=== PATIENT | male | born 1970 | race Caucasian/White ===

== ENCOUNTER → 2016-11-16 | Outpatient (CLI) | payer BC ==
[~2016-11-16] MED LIST: IBUP-103 PO
--- NOTE | 2016-11-16 13:48 | DIAGNOSTIC IMAGING REPORT ---
RIGHT KNEE MRI HISTORY: RIGHT KNEE PAIN Right COMPARISON STUDY: Bilateral knees 11/14/2016. TECHNIQUE: Multiplanar multisequence MRI of the right knee was performed according to standard department protocol without the use of contrast. FINDINGS: Menisci: The medial and lateral menisci are intact. Ligaments: The anterior and posterior cruciate ligaments are intact. The medial and lateral collateral ligaments are normal in appearance. Extensor mechanism: The quadriceps tendon and patellar ligament are intact. Articular cartilage and bone: No fracture or dislocation within the right knee. Small cystic focus within the mid proximal tibia which measures 5 mm. This is of doubtful clinical significance. Mild cartilage thinning within the medial femoral condyle. Small focal fissure within the median ridge of the patella. Best on coronal image 15 there is a small 5 mm bony excrescence extending from the medial aspect of the medial femoral condyle. This abuts and slightly displaces the undersurface of the MCL. There is trace soft tissue edema surrounding this area. Joint effusion: None. Soft tissues: Small popliteal cyst. IMPRESSION: 1. There is a 5 mm bony excrescence extending from the medial aspect of the medial femoral condyle. This abuts and slightly displaces the undersurface of the MCL. There is trace edema surrounding this excrescence possibly due to chronic irritation. The fibers of the MCL are intact. 2. No evidence for meniscus tear. 3. 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 4. Small popliteal cyst. Electronically signed by: Vic Jiménez M.D. 11/16/2016 1:47 PM Dictated Date/Time: 11/16/2016 1:36 PM
== END | disposition home or self-care (01) ==
LOC: C.MRIBC 12:30
PROVIDERS: ATTEND Orthopaedic Surgery
DX: M25.562 Pain in left knee (principal); M85.88 Other specified disorders of bone density and structure, other site; M71.22 Synovial cyst of popliteal space [Baker], left knee

== ENCOUNTER 2017-08-28 09:43 | Emergency (ER) | payer BC ==
[~2017-08-28] VITALS: Ht 172.7 cm; Wt 110.7 kg
[2017-08-28 09:45] VITALS: TEMP 36.4; Ht 172.7 cm; Wt 110.7 kg
[2017-08-28 10:22] LABS: BASO % 0.3 %; BASO ABS # 0.02 K/uL (0-0.2); EOS % 1.8 %; EOS ABS # 0.12 K/uL (0-0.5); HEMATOCRIT 47.1 % (42-52); HEMOGLOBIN 17.4 g/dL (14.0-18.0); IG# 0.02 K/uL (0.00-0.02); LYMPH % 27.1 %; LYMPH ABS # 1.83 K/uL (1.2-3.4); MEAN CORPUSCULAR HEMOGLOBIN 31.4 pg (25-34); MEAN CORPUSCULAR HGB CONC 36.9 g/dl (32-36); MEAN PLATELET VOLUME 11.9 fL (7.4-10.4); MONO % 7.7 %; MONO ABS # 0.52 K/uL (0.11-0.59); NEUT % 62.8 %; NEUT ABS # 4.25 K/uL (1.4-6.5); PLATELET COUNT 187 K/uL (130-400); RED CELL DISTRIBUTION WIDTH CV 13.3 % (11.5-14.5); RED CELL DISTRIBUTION WIDTH SD 41.3 fL (36.4-46.3); WHITE BLOOD COUNT 6.76 K/uL (4.8-10.8)
[2017-08-28 10:32] LABS: PTT PATIENT 31.3 SECONDS (21.0-31.0)
[2017-08-28 10:38] LABS: CALCIUM 9.1 mg/dl (8.5-10.1); CREATININE 1.35 mg/dl (0.60-1.40); POTASSIUM 3.4 mmol/L (3.5-5.1)
[2017-08-28 11:28] LABS: ALBUMIN 3.9 gm/dl (3.4-5.0); CKMB 0.9 ng/ml (0.5-3.6); TOTAL PROTEIN 8.2 gm/dl (6.4-8.2)
[2017-08-28 12:13] VITALS: BP 140/99; PULSE 80; O2SAT 98
--- NOTE | 2017-08-28 12:23 | HISTORY & PHYSICAL EXAMINATION ---
DATE OF ADMISSION: 08/28/2017 CHIEF COMPLAINT: Right lower extremity difficulty, paresthesias and pain. HISTORY OF PRESENT ILLNESS: Romeo is delightful. He is 46. He presented to the Emergency Room with a few-hour history of lower extremity difficulty, pain to his right calf, worsening by putting weight on it. Denies any associated trauma. Denies any associated weakness. 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 He had symptoms very similar. Five years ago in 2012, he had compartment syndrome, seen at [facility] urgently ____ [facility]. He had a 4-compartment fasciotomy performed to his left lower extremity. PAST MEDICAL HISTORY: Basically negative. PAST SURGICAL HISTORY: History of cholecystectomy ____. FAMILY HISTORY: Diabetes, heart disease, cancer, hypertension. SOCIAL HISTORY: Nonsmoker, no alcohol use. He is , employed. CURRENT MEDICATIONS: Advil. ALLERGIES: Negative. PHYSICAL EXAMINATION: VITAL SIGNS: He is afebrile. Adequate pulse at 82 beats per minute. GENERAL: He is alert, oriented. A normal-appearing male. HEENT: Normal. NECK: Supple. CHEST: Clear. CARDIAC: Regular rate. ABDOMEN: Soft, tender. MUSCULOSKELETAL: He has a sort of a cellulitis or rash on his right lower extremity dorsal aspect. It has been ____ 3-4 months. He has some swelling in his calf ____ towards his ankle. He has adequate pulses. He has adequate motor ability. No loss of sensation. IMPRESSION: Potential compartment syndrome or compartment syndrome evolution. PLAN: Includes a consultation with orthopedic at [facility]. They were kind enough to accept our patient. He had a surgery up there 5 years ago. The patient is really unsure where he would like to go, but I have tried to give him the best option. I feel that a transfer at least for evaluation and treatment in the Emergency Room setting would be appropriate. They have agreed to that.
--- NOTE | 2017-08-28 18:06 | EMERGENCY ROOM VISIT NOTE ---
History Report prepared by Angela: Tarun Chou Under the Supervision of: Dr. Ezra Gamble M.D. First contact with patient: 09:54 Chief Complaint: LEG PAIN,LEG INJURY Stated Complaint: PAIN IN LOWER RIGHT LEG History of Present Illness The patient is a 46 year old male who presents to the Emergency Room after referral from his PCP with complaints of worsening pain in the right lower extremity that her first noticed this morning. The pain is worse in the back of the right calf. The pain is worsened by walking/putting weight on the leg, but denies any associated weakness. He has a history of spontaneous compartment syndrome in his left lower extremity, and he notes that these symptoms feel very similar. Monday night he did have a fever. Source of History: patient Onset: This morning Position: leg (right) Timing: worsening Modifying Factors (Worsening): other (Applying weight to the leg) Associated Symptoms: + fevers Review of Systems See HPI for pertinent positives & negatives. A total of 10 systems reviewed and were otherwise negative. Past Medical & Surgical Surgical Problems: (1) Hx of cholecystectomy Hx of Spontaneous Compartment syndrome in the LLE. Family History Diabetes mellitus FH: heart disease FH: lung disease FHx: cancer Hypertension Social History Smoking Status: Never Smoker Alcohol Use: none Drug Use: none Marital Status: Occupation Status: employed Current/Historical Medications No Active Prescriptions or Reported Meds Allergies Coded Allergies: Azithromycin (Unverified Allergy, Unknown, flu like symptoms, 08/28/17) Physical Exam Vital Signs Date Time Temp Pulse Resp B/P (MAP) Pulse Ox O2 Delivery O2 Flow Rate FiO2 08/28/17 12:13 80 20 140/99 98 08/28/17 11:27 80 20 140/105 98 Room Air 08/28/17 09:45 36.4 82 18 161/117 97 Room Air Physical Exam General: Non-ill appearing middle-aged male in no acute distress. HEENT: Normal cephalic atraumatic. Pupils are equal round and reactive to light. Extraocular movements are intact. Oropharynx is pink with moist mucous membranes. No swelling of the mouth lips or tongue. Neck: Supple with a midline trachea. No meningeal signs or stiffness, no JVD or bruits. No Stridor. Chest: Clear to auscultation bilaterally. No wheezes or rhonchi. No increased work of breathing. Heart: regular rate and rhythm. Abdomen: Soft nontender, nondistended without rebound guarding or rigidity. Extremities: No cyanosis or clubbing. There is some right anterior this scabs present. The right calf is proximally non-tender. Distally there is some swelling around the ankle which is tender. The foot appears the same color and temperature as the left side. There is good capillary refill. It is difficult to palpate the pulses bilaterally. His skin has slight pink discoloration. Spine/Back. Non tender to palpation. No CVA tenderness Skin: Good turgor without rashes. Neurologic exam: Cranial nerves two through 12 are intact. Motor and sensation are intact and symmetrical throughout. Medical Decision & Procedures Laboratory Results 08/28/17 10:10 Red Blood Count 5.54, Mean Corpuscular Volume 85.0, Mean Corpuscular Hemoglobin 31.4, Mean Corpuscular Hemoglobin Concent 36.9, Mean Platelet Volume 11.9, Neutrophils (%) (Auto) 62.8, Lymphocytes (%) (Auto) 27.1, Monocytes (%) (Auto) 7.7, Eosinophils (%) (Auto) 1.8, Basophils (%) (Auto) 0.3, Neutrophils # (Auto) 4.25, Lymphocytes # (Auto) 1.83, Monocytes # (Auto) 0.52, Eosinophils # (Auto) 0.12, Basophils # (Auto) 0.02 08/28/17 10:10 Test 08/28/17 10:10 White Blood Count 6.76 K/uL (4.8-10.8) Red Blood Count 5.54 M/uL (4.7-6.1) Hemoglobin 17.4 g/dL (14.0-18.0) Hematocrit 47.1 % (42-52) Mean Corpuscular Volume 85.0 fL (80-100) Mean Corpuscular Hemoglobin 31.4 pg (25-34) Mean Corpuscular Hemoglobin Concent 36.9 g/dl (32-36) Platelet Count 187 K/uL (130-400) Mean Platelet Volume 11.9 fL (7.4-10.4) Neutrophils (%) (Auto) 62.8 % Lymphocytes (%) (Auto) 27.1 % Monocytes (%) (Auto) 7.7 % Eosinophils (%) (Auto) 1.8 % Basophils (%) (Auto) 0.3 % Neutrophils # (Auto) 4.25 K/uL (1.4-6.5) Lymphocytes # (Auto) 1.83 K/uL (1.2-3.4) Monocytes # (Auto) 0.52 K/uL (0.11-0.59) Eosinophils # (Auto) 0.12 K/uL (0-0.5) Basophils # (Auto) 0.02 K/uL (0-0.2) RDW Standard Deviation 41.3 fL (36.4-46.3) RDW Coefficient of Variation 13.3 % (11.5-14.5) Immature Granulocyte % (Auto) 0.3 % Immature Granulocyte # (Auto) 0.02 K/uL (0.00-0.02) Prothrombin Time 10.0 SECONDS (9.0-12.0) Prothromb Time International Ratio 1.0 (0.9-1.1) Activated Partial Thromboplast Time 31.3 SECONDS (21.0-31.0) Partial Thromboplastin Ratio 1.2 Anion Gap 7.0 mmol/L (3-11) Est Creatinine Clear Calc Drug Dose 80.7 ml/min Estimated GFR () 71.4 Estimated GFR (Non- 61.6 BUN/Creatinine Ratio 9.6 (10-20) Calcium Level 9.1 mg/dl (8.5-10.1) Total Bilirubin 1.0 mg/dl (0.2-1) Direct Bilirubin 0.3 mg/dl (0-0.2) Aspartate Amino Transf (AST/SGOT) 17 U/L (15-37) Alanine Aminotransferase (ALT/SGPT) 52 U/L (12-78) Alkaline Phosphatase 44 U/L (45-117) Total Creatine Kinase 104 U/L (39-308) Creatine Kinase MB 0.9 ng/ml (0.5-3.6) Creatine Kinase MB Ratio 0.9 (0-3.0) Total Protein 8.2 gm/dl (6.4-8.2) Albumin 3.9 gm/dl (3.4-5.0) Lipase 178 U/L (73-393) Laboratory studies as stated above per my review. ED Course 0954: Past medical records reviewed. The patient was evaluated in room B4B, and a complete history and physical examination were performed. 1024: I discussed the case with Dr. Alon Cochran. They will have someone come to see the patient in the department. 1034: I updated the patient at this time. His is here now. I informed them that the Orthopedic will be in. 1112: I discussed the case with Dr. Thomas - [facility]or has evaluated the patient. He is considering transfer. 1138: I discussed with Dr. Thomas again. He wants to transfer the patient via private vehicle to [facility] as that is where the past surgery was done. The patient is in agreement and will be transferred. Medical Decision Differential diagnosis includes; compartment syndrome, infection, DVT, musculoskeletal disorder. This patient comes in as described above. He was placed in room before he has pain in his right leg, he has had compartment syndrome on the left in the past and said it felt similar but was worse.. He has no neurologic deficits. He does have some scabs in his villagomez is possible this could be more like cellulitis. IV access was established and blood work was obtained I called or so immediately after same as my concern he that he could have compartment syndrome in the meantime blood work came back. he has no white count or fever to suggest infection. He has no acute electrolyte or metabolic abnormality. His CK is not elevated. Dr. Rajan did see the patient and talked to the family at length. He did recommend we send him to [place]. He has had surgery for this there before. At this point, I am not 100% sure whether he is compartment syndrome or not and they are going to further evaluate him there. The family is happy with the plan and he will be transferred to [place]. Consults Time Called: 1020 Consulting Physician: Dr. Alon Cochran Returned Call: 1024 I discussed the case with Dr. Alon Cochran. They will have someone come to see the patient in the department. Additional Consults: Time Called: 1112 Consulted Physician: Dr. William Cochran Returned Call: 1112 Additional Comments: 1112: I discussed the case with Dr. Thomas - [facility] has evaluated the patient. He is considering transfer. 1138: I discussed with Dr. Thomas again. He wants to transfer the patient via private vehicle to [facility] as that is where the past surgery was done. Impression Primary Impression: Compartment syndrome Additional Impression: Leg pain, right Scribe Attestation The scribe's documentation has been prepared under my direction and personally reviewed by me in its entirety. I confirm that the note above accurately reflects all work, treatment, procedures, and medical decision making performed by me. Departure Information Dispostion Transfer Acute Care Facility ([facility]) Prescriptions No Active Prescriptions or Reported Meds Referrals Gabe Velarde M.D. (PCP) Patient Instructions My [facility] Problem Qualifiers
== END 2017-08-28 12:15 | disposition short-term general hospital (02) ==
LOC: C.EDB 09:45
DX: T79.A21A Traumatic compartment syndrome of right lower extremity, initial encounter (principal); X58.XXXA Exposure to other specified factors, initial encounter; M79.661 Pain in right lower leg; Z90.49 Acquired absence of other specified parts of digestive tract; Z88.1 Allergy status to other antibiotic agents; Z83.3 Family history of diabetes mellitus; Z82.49 Family history of ischemic heart disease and other diseases of the circulatory system